=== PATIENT | female | born 1980 | race Caucasian/White ===

== ENCOUNTER 2017-07-20 09:08 | Outpatient (CLI) | payer OTHER ==
--- NOTE | 2017-07-20 13:00 | ULT ---
ABDOMINAL ULTRASOUND: DATE: 07/20/17. COMPARISON: 12/20/07. History A 37-year-old female with abdominal pain. TECHNIQUE: Multiplanar, maldonado scale, sonographic imaging of the abdomen obtained. FINDINGS: The imaged IVC and aorta appear within normal limits. Pancreas appears grossly unremarkable, the dis didi body and tail obscured by bowel gas. There is no focal liver lesion or intrahepatic biliary dilatation noted. No gallbladder wall thickening or pericholecystic fluid. No gallstones are noted.. The common bile duct measures approximately 5 mm, within normal limits. The right kidney measures 11 cm in craniocaudal dimension, demonstrating no evidence for stone, hydro nephrosis, or mass lesion. The spleen measures up to 12.4 cm, within normal limits. The left kidney measures 12.1 cm in craniocaudal dimension and demonstrates no stone, hydronephrosis, or mass. IMPRESSION: No acute findings. POS: RUBEN
--- NOTE | 2017-07-20 13:09 | ULT ---
BILATERAL RENAL ULTRASOUND: HISTORY: A 37-year-old female with kidney stones, right flank pain. FINDINGS: Both kidneys measure 11.8 cm in length without focal mass or hydronephrosis. No shadowing calculi ar e seen. There is mild prominence of the right renal pelvis. Bilateral ureteral jets are noted in th e urinary bladder. The prevoid bladder volume measures 208 cc with a postvoid residual of 46 cc. IMPRESSION: No evidence of high-grade obstruction. POS: RUBEN
== END 2017-07-20 09:09 | disposition home or self-care (01) ==
LOC: ULT 09:08
PROVIDERS: ATTEND Family Medicine
DX: R10.30 Lower abdominal pain, unspecified (principal); N20.0 Calculus of kidney
CPT/HCPCS: 76700; 76770

== ENCOUNTER 2020-12-18 10:04 | Outpatient (CLI) | payer OTHER | END 2020-12-18 10:05 | disposition home or self-care (01) | LOC: BICMAMMO 10:04 | PROVIDERS: ATTEND Family Medicine | DX: Z12.31 Encounter for screening mammogram for malignant neoplasm of breast (principal); Z80.3 Family history of malignant neoplasm of breast | CPT/HCPCS: 77063; 77067 ==